=== PATIENT | female | born 1935 | race Caucasian/White ===

== ENCOUNTER 2022-07-22 18:52 | Emergency (ER) | payer MEDICARE ==
[~2022-07-22] VITALS: Ht 152.4 cm; Wt 68.0 kg
[2022-07-22 19:00] VITALS: BP_SYST 114
--- NOTE | 2022-07-22 19:59 | NUR ---
PT FAN BEST FROM HOME WITH C/O PT WAS USING RESTROOM, WHEN SHE GOT UP SHE HAD A SYNCOPE EPISODE. FAMILY ASSISTED PATIENT BACK UP. PT DENIES ANY HEAD AND BODY PAIN. AMBULATORY. A/O X4
[2022-07-22 20:00] VITALS: BP_SYST 114
--- NOTE | 2022-07-22 20:00 | NUR ---
LAB AT BEDSIDE
--- NOTE | 2022-07-22 20:07 | NUR ---
XRAY AT BEDSIDE
[2022-07-22 20:17] LABS: BASOPHILS % (AUTO) 0.4 % (0.0-2.0); EOSINOPHILS # (AUTO) 0.1 K/uL (0.0-0.4); EOSINOPHILS % (AUTO) 1.2 % (0.0-4.0); HEMATOCRIT 37.7 % (36-48); HEMOGLOBIN 12.9 g/dL (12.0-16.0); LYMPHOCYTES # (AUTO) 1.2 K/uL (1.0-5.5); LYMPHOCYTES % (AUTO) 19.4 % (20.5-51.5); MEAN CORPUSCULAR HEMOGLOBIN 31 pg (27-31); MEAN CORPUSCULAR HGB CONC 34 % (32-36); MEAN CORPUSCULAR VOLUME 90 fL (79.0-98.0); MONOCYTES # (AUTO) 0.5 K/uL (0.0-1.0); MONOCYTES % (AUTO) 7.6 % (1.7-9.3); NEUTROPHILS # (AUTO) 4.5 K/uL (1.8-7.7); NEUTROPHILS % (AUTO) 71.4 % (40.0-70.0); RED BLOOD CELL COUNT(AUTO) 4.19 MIL/uL (4.2-6.2); RED CELL DISTRIBUTION WIDTH 13.3 % (9.0-15.0); WHITE BLOOD COUNT (AUTO) 6.3 K/uL (4.8-10.8)
--- NOTE | 2022-07-22 20:18 | NUR ---
PATIENT AMBULATED TO RESTROOM
[2022-07-22 20:26] LABS: ANION GAP 8 (5-15); CHLORIDE 102 mmol/L (98-107); CREATININE 0.73 mg/dL (0.55-1.30); GLUCOSE 159 mg/dL (70-99); UREA NITROGEN, BLOOD 20 mg/dL (8-21)
[2022-07-22 20:28] LABS: PLATELET COUNT (AUTO) 98 K/uL (130-430)
[2022-07-22 20:31] LABS: ALANINE AMINOTRANSFERASE 30 U/L (12-78); ALBUMIN 3.5 g/dL (3.4-4.8); ASPARTATE AMINOTRANSFERASE 20 U/L (10-37); TOTAL BILIRUBIN 0.3 mg/dL (0.0-1.0)
[2022-07-22] MEDS ORDERED: NACL 0.9% 1,000 ML IV ONE (20:45)
--- NOTE | 2022-07-22 21:48 | NUR ---
Patient given written and verbal discharge instructions and verbalizes understanding. ER MD discussed with patient the results and treatment provided. Patient in stable condition. ID arm band removed. Pain Scale 0/10.Opportunity for questions provided and answered.
== END 2022-07-22 21:48 | disposition home or self-care (01) ==
LOC: SED 18:52
DX: E86.0 Dehydration (principal); R55 Syncope and collapse; R19.7 Diarrhea, unspecified; K21.9 Gastro-esophageal reflux disease without esophagitis; Z88.6 Allergy status to analgesic agent; Z79.899 Other long term (current) drug therapy
CPT/HCPCS: 36415; 71045; 80053; 83605; 85025; 87040; 93005; 99285